=== PATIENT | female | born 1985 | race Caucasian/White ===

== ENCOUNTER 2021-01-03 20:46 | Emergency (ER) | payer OTHER ==
[2021-01-03] MEDS ORDERED: traMADol HCl 50 MG TAB ONE (21:15)
== END 2021-01-03 21:21 | disposition home or self-care (01) ==
LOC: BURERS 20:46
DX: N63.10 Unspecified lump in the right breast, unspecified quadrant (principal); Z79.899 Other long term (current) drug therapy
CPT/HCPCS: 99283

== ENCOUNTER 2021-07-28 12:40 | Emergency (ER) | payer OTHER ==
[2021-07-28] MEDS ORDERED: Morphine 10 MG/ML VIAL ONE (13:22)
[2021-07-28] MEDS ORDERED: Lidocaine 1% w/Epinephrine 1:100K 20 ML VIAL ONE (14:33)
== END 2021-07-28 16:25 | disposition home or self-care (01) ==
LOC: BURERS 12:40
DX: N61.1 Abscess of the breast and nipple (principal); Z79.891 Long term (current) use of opiate analgesic
CPT/HCPCS: 10060; 96372; J2270